=== PATIENT | male | born 1970 | race Caucasian/White ===

== ENCOUNTER → 2016-05-31 | Outpatient (CLI) | payer BC, OTHER ==
[2016-05-31 09:05] LABS: LDL CHOLESTEROL,CALCULATED 68.8 mg/dL
[2016-05-31 09:17] LABS: ASPARTATE AMINO TRANSFERASE 43 IU/L (21-57); BILIRUBIN,TOTAL 1.4 mg/dL (0.3-1.2); BLOOD UREA NITROGEN 14 mg/dL (7-22); CALCIUM 9.1 mg/dL (8.7-10.7); CHLORIDE 105 meq/L (98-112); CREATININE 0.8 mg/dL (0.70-1.50); EST GLOMERULAR FILTRATION > 60 (>60 ml/min/1.73m(2)); GLUCOSE 173 mg/dL (78-110); POTASSIUM 4.2 meq/L (3.8-5.2); SODIUM 140 meq/L (135-145); TOTAL PROTEIN 7.2 g/dL (6.1-8.0)
[2016-05-31 09:19] LABS: CREATININE, URINE 127.2 MG/DL (15-500)
[2016-05-31 09:42] LABS: PROTHROMBIN TIME 30.8 secs (9.7-11.4)
[2016-05-31 10:20] LABS: FREE T4 (FREE THYROXINE) 1.2 ng/dL (0.93-1.71)
[2016-05-31 10:38] LABS: HEMATOCRIT 44.2 % (42.0-52.0); HEMOGLOBIN 15.6 g/dL (14.0-18.0); MEAN CORPUSCULAR HEMOGLOBIN 32.2 PG (27-31); MEAN CORPUSCULAR HGB CONC 35.3 g/dL (33-37); MEAN PLATELET VOLUME 9.7 FL (7.4-12.2); RDW COEFFICIENT OF VARIATION 13.2 % (11.5-14.5); RED BLOOD COUNT 4.84 10^6/uL (4.70-6.10)
[2016-05-31 10:39] LABS: BASOPHILS % (AUTO) 0.5 % (0-1); EOSINOPHILS % (AUTO) 2.8 % (0-8); IMM GRAN % (AUTO) 0.2 % (0-5); LYMPHOCYTES # (AUTO) 2.31 10*3/uL; LYMPHOCYTES % (AUTO) 39.8 % (10-50); MONOCYTES # (AUTO) 0.49 10*3/UL (0.3-0.8); MONOCYTES % (AUTO) 8.4 % (5-15); NEUTROPHILS % (AUTO) 48.3 % (50-80)
[2016-05-31 10:41] LABS: BASOPHILS # (AUTO) 0.03 10*3/UL; IMM GRAN# (AUTO) 0.01 10*3/UL; PLATELET MORPHOLOGY COMMENT NORMAL MORPHOLOGY (NORM)
[2016-05-31 10:57] LABS: RETIC COUNT 0.1188 10(6)/uL (0.0380-0.1130); RETICULOCYTE PERCENT 2.46 % (0.77-2.36)
== END ==
LOC: LAB 08:36
PROVIDERS: ATTEND Internal Medicine Medical Oncology
DX: E11.65 Type 2 diabetes mellitus with hyperglycemia (principal); E11.42 Type 2 diabetes mellitus with diabetic polyneuropathy; D59.9 Acquired hemolytic anemia, unspecified; D69.3 Immune thrombocytopenic purpura; E66.01 Morbid (severe) obesity due to excess calories
CPT/HCPCS: 36415; 80053; 80061; 82043; 84439; 84443; 85025; 85045; 85610

== ENCOUNTER → 2016-06-23 | Outpatient (CLI) | payer BC, OTHER ==
[2016-06-23 11:34] LABS: PROTHROMBIN TIME 18.3 secs (9.7-11.4)
== END ==
LOC: LAB 10:46
PROVIDERS: ATTEND Internal Medicine Medical Oncology
DX: D59.9 Acquired hemolytic anemia, unspecified (principal)
CPT/HCPCS: 36415; 85610

== ENCOUNTER → 2016-07-28 | Outpatient (CLI) | payer BC, OTHER ==
[2016-07-28 10:42] LABS: BASOPHILS # (AUTO) 0.02 10*3/UL; BASOPHILS % (AUTO) 0.4 % (0-1); EOSINOPHILS % (AUTO) 1.8 % (0-8); HEMATOCRIT 47.2 % (42.0-52.0); HEMOGLOBIN 16.7 g/dL (14.0-18.0); LYMPHOCYTES # (AUTO) 1.46 10*3/uL; MEAN CORPUSCULAR HEMOGLOBIN 32.4 PG (27-31); MEAN CORPUSCULAR HGB CONC 35.4 g/dL (33-37); MEAN PLATELET VOLUME 9.7 FL (7.4-12.2); MONOCYTES # (AUTO) 0.38 10*3/UL (0.3-0.8); MONOCYTES % (AUTO) 6.9 % (5-15); NEUTROPHILS # (AUTO) 3.54 10*3/UL; NEUTROPHILS % (AUTO) 64.2 % (50-80); RED BLOOD COUNT 5.16 10^6/uL (4.70-6.10)
[2016-07-28 10:43] LABS: PLATELET MORPHOLOGY COMMENT NORMAL MORPHOLOGY (NORM); RBC MORPHOLOGY COMMENT NORMAL MORPHOLOGY (NORM); WBC MORPHOLOGY COMMENT NORMAL MORPHOLOGY (NORM)
[2016-07-28 11:12] LABS: BLOOD UREA NITROGEN 16 mg/dL (7-22); BUN/CREATININE RATIO 22.85 (6-20); CALCIUM 9.1 mg/dL (8.7-10.7); EST GLOMERULAR FILTRATION > 60 (>60 ml/min/1.73m(2)); SERUM ALBUMIN 4.1 g/dL (3.5-4.8)
== END ==
LOC: LAB 10:21
PROVIDERS: ATTEND Internal Medicine Medical Oncology
DX: D59.9 Acquired hemolytic anemia, unspecified (principal)
CPT/HCPCS: 36415; 80053; 85025; 85045; 85610

== ENCOUNTER → 2016-08-23 | Outpatient (CLI) | payer BC, OTHER ==
[2016-08-23 08:50] LABS: BASOPHILS # (AUTO) 0.03 10*3/UL; BASOPHILS % (AUTO) 0.5 % (0-1); HEMOGLOBIN 16.8 g/dL (14.0-18.0); MEAN PLATELET VOLUME 9.8 FL (7.4-12.2)
[2016-08-23 08:53] LABS: EOSINOPHILS # (AUTO) 0.11 10*3/UL; HEMATOCRIT 46.9 % (42.0-52.0); LYMPHOCYTES # (AUTO) 2.01 10*3/uL; MEAN CORPUSCULAR HEMOGLOBIN 32.3 PG (27-31); MEAN CORPUSCULAR HGB CONC 35.8 g/dL (33-37); MEAN CORPUSCULAR VOLUME 90.2 FL (80-90); MONOCYTES # (AUTO) 0.58 10*3/UL (0.3-0.8); MONOCYTES % (AUTO) 10.4 % (5-15); NEUTROPHILS # (AUTO) 2.86 10*3/UL; NEUTROPHILS % (AUTO) 51.1 % (50-80)
[2016-08-23 08:56] LABS: PLATELET MORPHOLOGY COMMENT NORMAL MORPHOLOGY (NORM); RBC MORPHOLOGY COMMENT NORMAL MORPHOLOGY (NORM); WBC MORPHOLOGY COMMENT NORMAL MORPHOLOGY (NORM)
[2016-08-23 09:01] LABS: BLOOD UREA NITROGEN 14 mg/dL (7-22); BUN/CREATININE RATIO 23.33 (6-20); CALCIUM 9.2 mg/dL (8.7-10.7); EST GLOMERULAR FILTRATION > 60 (>60 ml/min/1.73m(2)); SERUM ALBUMIN 4.1 g/dL (3.5-4.8)
== END ==
LOC: LAB 08:35
PROVIDERS: ATTEND Internal Medicine Medical Oncology
DX: D59.9 Acquired hemolytic anemia, unspecified (principal)
CPT/HCPCS: 36415; 80053; 85025; 85045; 85610

== ENCOUNTER → 2016-10-13 | Outpatient (CLI) | payer BC, OTHER ==
[2016-10-13 10:50] LABS: HEMOGLOBIN 17.3 g/dL (14.0-18.0); MEAN PLATELET VOLUME 9.8 FL (7.4-12.2)
[2016-10-13 10:54] LABS: BASOPHILS # (AUTO) 0.03 10*3/UL; BASOPHILS % (AUTO) 0.5 % (0-1); EOSINOPHILS # (AUTO) 0.16 10*3/UL; EOSINOPHILS % (AUTO) 2.6 % (0-8); HEMATOCRIT 48.9 % (42.0-52.0); LYMPHOCYTES # (AUTO) 1.96 10*3/uL; MEAN CORPUSCULAR HEMOGLOBIN 32.1 PG (27-31); MEAN CORPUSCULAR HGB CONC 35.4 g/dL (33-37); MEAN CORPUSCULAR VOLUME 90.7 FL (80-90); MONOCYTES # (AUTO) 0.52 10*3/UL (0.3-0.8); MONOCYTES % (AUTO) 8.4 % (5-15); NEUTROPHILS # (AUTO) 3.48 10*3/UL; NEUTROPHILS % (AUTO) 56.3 % (50-80); RED BLOOD COUNT 5.39 10^6/uL (4.70-6.10)
[2016-10-13 10:56] LABS: BLOOD UREA NITROGEN 15 mg/dL (7-22); BUN/CREATININE RATIO 21.42 (6-20); EST GLOMERULAR FILTRATION > 60 (>60 ml/min/1.73m(2)); SERUM ALBUMIN 4.2 g/dL (3.5-4.8)
[2016-10-13 11:00] LABS: PLATELET MORPHOLOGY COMMENT NORMAL MORPHOLOGY (NORM); RBC MORPHOLOGY COMMENT NORMAL MORPHOLOGY (NORM); WBC MORPHOLOGY COMMENT NORMAL MORPHOLOGY (NORM)
== END ==
LOC: LAB 10:25
PROVIDERS: ATTEND Internal Medicine Medical Oncology
DX: D59.9 Acquired hemolytic anemia, unspecified (principal)
CPT/HCPCS: 36415; 80053; 85025; 85045; 85610

== ENCOUNTER → 2016-12-09 | Outpatient (CLI) | payer BC, OTHER ==
[2016-12-09 11:33] LABS: BLOOD UREA NITROGEN 14 mg/dL (7-22); BUN/CREATININE RATIO 23.33 (6-20); CALCIUM 8.9 mg/dL (8.7-10.7); EST GLOMERULAR FILTRATION > 60 (>60 ml/min/1.73m(2)); SERUM ALBUMIN 3.9 g/dL (3.5-4.8)
[2016-12-09 11:58] LABS: HEMATOCRIT 48.5 % (42.0-52.0); HEMOGLOBIN 17.1 g/dL (14.0-18.0); MEAN CORPUSCULAR HEMOGLOBIN 32.1 PG (27-31); MEAN CORPUSCULAR HGB CONC 35.3 g/dL (33-37); MEAN CORPUSCULAR VOLUME 91.2 FL (80-90); RED BLOOD COUNT 5.32 10^6/uL (4.70-6.10)
[2016-12-09 11:59] LABS: BASOPHILS # (AUTO) 0.02 10*3/UL; BASOPHILS % (AUTO) 0.4 % (0-1); EOSINOPHILS # (AUTO) 0.12 10*3/UL; EOSINOPHILS % (AUTO) 2.4 % (0-8); LYMPHOCYTES # (AUTO) 1.29 10*3/uL; MONOCYTES # (AUTO) 0.37 10*3/UL (0.3-0.8); MONOCYTES % (AUTO) 7.5 % (5-15); NEUTROPHILS # (AUTO) 3.15 10*3/UL; NEUTROPHILS % (AUTO) 63.5 % (50-80); PLATELET MORPHOLOGY COMMENT NORMAL MORPHOLOGY (NORM); RBC MORPHOLOGY COMMENT NORMAL MORPHOLOGY (NORM); WBC MORPHOLOGY COMMENT NORMAL MORPHOLOGY (NORM)
== END ==
LOC: LAB 10:50
PROVIDERS: ATTEND Internal Medicine Medical Oncology
DX: D59.9 Acquired hemolytic anemia, unspecified (principal)
CPT/HCPCS: 80053; 85025; 85045; 85610